=== PATIENT | female | born 1995 ===

== ENCOUNTER 2022-11-13 09:23 | Outpatient (CLI) | payer OTHER | END 2022-11-13 11:55 | disposition home or self-care (01) | LOC: PRENATAL 09:23 | PROVIDERS: ATTEND Obstetrics & Gynecology Maternal & Fetal Medicine | DX: O36.80X0 Pregnancy with inconclusive fetal viability, not applicable or unspecified (principal); O28.5 Abnormal chromosomal and genetic finding on antenatal screening of mother; Z36.82 Encounter for antenatal screening for nuchal translucency; Z3A.14 14 weeks gestation of pregnancy ==